=== PATIENT | male | born 1955 | race Caucasian/White ===

== ENCOUNTER 2020-05-23 05:45 | Day surgery (SDC) | payer BC ==
[2020-05-21 14:35] VITALS: BMI 29.8
[2020-05-23] MEDS ORDERED: Fentanyl 100 MCG/2 ML VIAL ONE ×2 (07:08→08:01)
[2020-05-23] MEDS ORDERED: Famotidine/PF 20 mg/2ml Vial ONE (07:08)
[2020-05-23] MEDS ORDERED: Midazolam HCl 2 mg/2 ml Vial ONE (07:08)
[2020-05-23] MEDS ORDERED: Fentanyl 100 MCG/2 ML VIAL IV PRN (08:05)
[2020-05-23] MEDS ORDERED: Promethazine HCl 25 MG/ML VIAL IM PRN (08:15)
[2020-05-23] MEDS ORDERED: Ropivacaine 0.2% 550 ML 550 ML NERVE BLCK SCH (08:15)
[2020-05-23] MEDS ORDERED: Zolpidem Tartrate 5 MG TAB PO PRN (08:15)
[2020-05-23] MEDS ORDERED: traMADol HCl 50 MG TAB PO PRN ×2 (08:15)
[2020-05-23] MEDS ORDERED: HYDROcodone/Acetaminophen 10/325 mg Tablet PO PRN ×2 (08:15)
[2020-05-23] MEDS ORDERED: Ondansetron PF 4 MG/2 ML Vial IVP PRN (08:15)
[2020-05-23] MEDS ORDERED: Bupivacaine 0.25% HCL 30 ML VIAL ONE (08:29)
[2020-05-23] MEDS ORDERED: EPINEPHrine 1 MG/ML AMP ONE (08:29)
[2020-05-23] MEDS ORDERED: Rocuronium Bromide 10 MG/ML (10ML VIAL) ONE (13:20)
[2020-05-23] MEDS ORDERED: PROPOFOL 200 MG/20 ML VIAL ONE (13:20)
[2020-05-23] MEDS ORDERED: Ondansetron PF 4 MG/2 ML Vial ONE (13:20)
[2020-05-23] MEDS ORDERED: Glycopyrrolate 0.2 MG/ML 5 ML SYRINGE ONE (13:20)
[2020-05-23] MEDS ORDERED: Ketorolac Tromethamine 30 MG/ML VIAL ONE (13:20)
[2020-05-23] MEDS ORDERED: Lidocaine 1% PF 5 ML VIAL ONE (13:20)
[2020-05-23] MEDS ORDERED: Dexamethasone 20 MG/5 ML VIAL ONE (13:20)
== END 2020-05-23 13:35 | disposition home or self-care (01) ==
LOC: SDC 05:45
PROVIDERS: ATTEND Orthopaedic Surgery
PROC: 0LQ24ZZ Repair Left Shoulder Tendon, Percutaneous Endoscopic Approach (ICD-10-PCS; principal; 2020-05-23)
PROC: 0LS40ZZ Reposition Left Upper Arm Tendon, Open Approach (ICD-10-PCS; principal; 2020-05-23)
PROC: 3E0T3BZ Introduction of Anesthetic Agent into Peripheral Nerves and Plexi, Percutaneous Approach (ICD-10-PCS; principal; 2020-05-23)
PROC: 0RNK4ZZ Release Left Shoulder Joint, Percutaneous Endoscopic Approach (ICD-10-PCS; principal; 2020-05-23)
DX: M75.102 Unspecified rotator cuff tear or rupture of left shoulder, not specified as traumatic (principal); M25.812 Other specified joint disorders, left shoulder; S46.212A Strain of muscle, fascia and tendon of other parts of biceps, left arm, initial encounter; G89.18 Other acute postprocedural pain; J30.2 Other seasonal allergic rhinitis; Z87.891 Personal history of nicotine dependence
CPT/HCPCS: A4306; C1713; J0171; J0690; J1100; J1885; J2250; J2405; J2704; J2795; J3010; S0020; S0028

== ENCOUNTER 2022-04-22 16:07 | Outpatient (CLI) | payer MEDICARE, OTHER ==
[2022-04-22 16:57] LABS: Bilirubin Neg (Negative); Blood, Urine Negative (Negative); Glucose, Urine (Dipstick) Normal (Negative); Ketone, Urine Negative (Negative); Leukocyte Negative (Negative); Nitrite Negative (Negative); Protein, Urine (Dipstick) Negative (Neg-Trace); Specific Gravity, Urine 1.005 (1.005-1.030); Urobilinogen Normal mg/dL (Less than 2); pH, Urine 6.5 (5.0-9.0)
[2022-04-22 17:02] LABS: Clarity Clear (Clear)
[2022-04-22 17:20] LABS: #Basophils 0.1 10x3/uL (0.0-0.2); #Eosinphils 0.1 10x3/uL (0.0-0.5); #Monocytes 0.5 10x3/uL (0.0-1.1); #Neutrophils 4.4 10x3/uL (1.5-8.4); %Basophils 0.7 % (0.0-2.0); %Lymphocytes 25.5 % (18.0-47.0); %Monocytes 7.6 % (0.0-10.0); %Neutrophils 63.8 % (40.0-75.0); Hemoglobin 14.2 g/dL (13.5-17.5); Mean Corpuscular Volume 93.9 fl (81.2-95.1); Mean Platelet Volume 9.9 fl (7.4-10.4); Platelet Count 278 10x3/uL (150-450); RBC Distribution Width 12.6 % (11.5-14.5); Red Blood Cell (RBC) Count 4.58 10x6/uL (4.32-5.72); White Blood Cell (WBC) Count 6.9 10x3/uL (3.5-10.5)
== END 2022-04-22 16:08 | disposition home or self-care (01) ==
LOC: LABBT 16:07
PROVIDERS: ATTEND Orthopaedic Surgery
DX: Z01.818 Encounter for other preprocedural examination (principal); M17.12 Unilateral primary osteoarthritis, left knee
CPT/HCPCS: 71046; 80048; 81003; 85025; 85610; 86850; 86900; 86901; 87081; 93005; 93010

== ENCOUNTER 2022-04-26 07:22 | Observation (INO) | payer MEDICARE ==
[2022-04-22 16:57] LABS: Bilirubin Neg (Negative); Blood, Urine Negative (Negative); Glucose, Urine (Dipstick) Normal (Negative); Ketone, Urine Negative (Negative); Leukocyte Negative (Negative); Nitrite Negative (Negative); Protein, Urine (Dipstick) Negative (Neg-Trace); Specific Gravity, Urine 1.005 (1.005-1.030); Urobilinogen Normal mg/dL (Less than 2); pH, Urine 6.5 (5.0-9.0)
[2022-04-22 17:02] LABS: Clarity Clear (Clear)
[2022-04-22 17:20] LABS: #Basophils 0.1 10x3/uL (0.0-0.2); #Eosinphils 0.1 10x3/uL (0.0-0.5); #Monocytes 0.5 10x3/uL (0.0-1.1); #Neutrophils 4.4 10x3/uL (1.5-8.4); %Basophils 0.7 % (0.0-2.0); %Lymphocytes 25.5 % (18.0-47.0); %Monocytes 7.6 % (0.0-10.0); %Neutrophils 63.8 % (40.0-75.0); Hemoglobin 14.2 g/dL (13.5-17.5); Mean Corpuscular Volume 93.9 fl (81.2-95.1); Mean Platelet Volume 9.9 fl (7.4-10.4); Platelet Count 278 10x3/uL (150-450); RBC Distribution Width 12.6 % (11.5-14.5); Red Blood Cell (RBC) Count 4.58 10x6/uL (4.32-5.72); White Blood Cell (WBC) Count 6.9 10x3/uL (3.5-10.5)
[2022-04-23 09:12] VITALS: BMI 29.8
[2022-04-26] MEDS ORDERED: Midazolam HCl 2 mg/2 ml Vial ONE (08:01)
[2022-04-26] MEDS ORDERED: Fentanyl 100 MCG/2 ML VIAL ONE (08:01)
[2022-04-26] MEDS ORDERED: Bupivacaine PF 0.5% 30 ML VIAL ONE (08:01)
[2022-04-26] MEDS ORDERED: Sodium Chloride 0.9% 100 ML ONE ×2 (08:16→09:47)
[2022-04-26] MEDS ORDERED: Tranexamic Acid 1,000 MG/10 ML VIAL ONE ×2 (08:16→12:16)
[2022-04-26] MEDS ORDERED: Vancomycin (BATCH) 1.5 GRAM/300 ML BAG ONE (08:16)
[2022-04-26 08:31] LABS: INR-International Normal Ratio 0.9; Prothrombin Time 12.9 sec (12.0-14.7)
[2022-04-26 08:38] LABS: Anion Gap 13 mmol/L (10-20); BUN (Urea Nitrogen) 16 mg/dL (8.4-25.7); Calc. Creatinine Clearance 140 mL/min (70-130); Calcium 9.1 mg/dL (7.8-10.44); Carbon Dioxide 21 mmol/L (23-31); Chloride 109 mmol/L (98-107); Estimated GFR 100; Glucose 89 mg/dL (80-115); Potassium 4.8 mmol/L (3.5-5.1); Sodium 138 mmol/L (136-145)
[2022-04-26] MEDS ORDERED: Bupivacaine HCl 0.5%/Epinephrine 1:200,000/PF 30 ml Vial ONE (08:40)
[2022-04-26 08:45] LABS: SARS-CoV-2 NAA Rapid Test Not Detected (NotDetected)
[2022-04-26] MEDS ORDERED: Fentanyl 100 MCG/2 ML VIAL IV PRN (08:51)
[2022-04-26] MEDS ORDERED: Zolpidem Tartrate 5 MG TAB PO PRN ×2 (09:00→10:02)
[2022-04-26] MEDS ORDERED: Promethazine HCl 25 MG/ML VIAL IM PRN ×3 (09:00→11:58)
[2022-04-26] MEDS ORDERED: traMADol HCl 50 MG TAB PO PRN (09:00)
[2022-04-26] MEDS ORDERED: Ropivacaine 0.2% 550 ML 550 ML NERVE BLCK SCH ×2 (09:00→09:15)
[2022-04-26] MEDS ORDERED: Ondansetron PF 4 MG/2 ML Vial IVP PRN ×2 (09:00→10:02)
[2022-04-26] MEDS ORDERED: HYDROcodone/Acetaminophen 10/325 mg Tablet PO PRN ×2 (09:00)
[2022-04-26] MEDS ORDERED: fentaNYL PF 100 MCG/2 ML SYRINGE ONE (09:42)
[2022-04-26] MEDS ORDERED: Bupivacaine 0.25% HCL 30 ML VIAL ONE (09:47)
[2022-04-26] MEDS ORDERED: CEFAZOLIN 2 GM VIAL ONE (09:47)
[2022-04-26] MEDS ORDERED: Dexamethasone 20 MG/5 ML VIAL ONE (09:56)
[2022-04-26] MEDS ORDERED: Ketorolac Tromethamine 30 MG/ML VIAL ONE (09:56)
[2022-04-26] MEDS ORDERED: PROPOFOL 200 MG/20 ML VIAL ONE (09:56)
[2022-04-26] MEDS ORDERED: Lidocaine 1% PF 5 ML VIAL ONE (09:56)
[2022-04-26] MEDS ORDERED: Ondansetron PF 4 MG/2 ML Vial ONE (09:56)
[2022-04-26] MEDS ORDERED: diphenhydrAMINE 25 MG CAP PO PRN (10:02)
[2022-04-26] MEDS ORDERED: Acetaminophen 325 MG TAB PO PRN (10:02)
[2022-04-26] MEDS ORDERED: Tranexamic Acid 1,000 MG in Sodium Chloride 0.9% 100 ML IVPB SCH (10:15)
[2022-04-26] MEDS ORDERED: Ondansetron HCl/PF 4 MG/2 ML Vial IVP PRN (11:58)
[2022-04-26] MEDS: Ketorolac Tromethamine 30 MG/ML VIAL IVP SCH ×2 (13:52→22:23)
[2022-04-26] MEDS: Sodium Chloride 0.9% 1,000 ML IV SCH ×2 (13:52→20:51)
[2022-04-26] MEDS: CEFAZOLIN 2 GM in Sodium Chloride 0.9% 100 ML IVPB SCH (17:49)
[2022-04-26] MEDS ORDERED: Vancomycin 1.5 GRAM/300 ML BAG 1.5 GM in Premix Bag 1 BAG IVPB SCH (20:00)
[2022-04-26] MEDS: Ferrous Gluconate 324 MG TAB PO SCH (20:43)
[2022-04-26] MEDS: Aspirin 81 mg Enteric Coated Tablet PO SCH (20:43)
[2022-04-26] MEDS: Senokot S 8.6-50 MG TAB PO SCH (20:44)
[2022-04-26] MEDS: traMADol HCl 50 MG TAB PO PRN (20:44)
[2022-04-27] MEDS: CEFAZOLIN 2 GM in Sodium Chloride 0.9% 100 ML IVPB SCH (01:53)
[2022-04-27] MEDS: Ketorolac Tromethamine 30 MG/ML VIAL IVP SCH ×2 (05:08→13:31)
[2022-04-27] MEDS: traMADol HCl 50 MG TAB PO PRN ×2 (05:08→11:21)
[2022-04-27] MEDS: Sodium Chloride 0.9% 1,000 ML IV SCH (05:53)
[2022-04-27 06:06] LABS: Hemoglobin 11.8 g/dL (14.0-18.0); Mean Corpuscular Hemoglobin 31.4 pg (27.0-31.0); Mean Corpuscular Volume 98.3 fl (78.0-98.0); Mean Platelet Volume 7.8 fL (7.4-10.4); Platelet Count 201 10x3/uL (130-400); RBC Distribution Width 11.8 % (11.5-14.5); Red Blood Cell (RBC) Count 3.75 mill/uL (4.70-6.10); White Blood Cell (WBC) Count 10.9 10x3/uL (4.8-10.8)
[2022-04-27] MEDS: Ferrous Gluconate 324 MG TAB PO SCH (08:32)
[2022-04-27] MEDS: Senokot S 8.6-50 MG TAB PO SCH (08:32)
[2022-04-27] MEDS: Aspirin 81 mg Enteric Coated Tablet PO SCH (08:32)
[2022-04-27] MEDS ORDERED: Metamucil PACK PO SCH (09:00)
[2022-04-27] MEDS ORDERED: Multivitamin W/ Minerals 1 TAB PO SCH (09:00)
[2022-04-27 12:05] VITALS: BP 146/80; TEMP 98.1
== END 2022-04-27 14:30 | disposition home health service (06) ==
LOC: SDC 07:22 → SJJU 12:56
PROVIDERS: ADMIT Orthopaedic Surgery; ATTEND Orthopaedic Surgery
PROC: 0SRD0J9 Replacement of Left Knee Joint with Synthetic Substitute, Cemented, Open Approach (ICD-10-PCS; principal; 2022-04-26)
DX: M17.0 Bilateral primary osteoarthritis of knee (principal); Z87.891 Personal history of nicotine dependence; Z79.899 Other long term (current) drug therapy; Z20.822 Contact with and (suspected) exposure to COVID-19
CPT/HCPCS: 20985; 27447; 80048; 81003; 85025; 85027; 85610; 86850; 86900; 86901; 96365; 96366; 96367; 96375; 96376 ×2; 97110 ×2; 97116 ×2; 97530; A4306; C1713; C1776; G0378 ×2; J3370; U0002; 36415; J1100; J1885; J2250; J2405; J2704; J2795; J3010; J3490; J7050; S0020

== ENCOUNTER 2024-12-14 09:30 | Day surgery (SDC) | payer MEDICARE, OTHER ==
[2024-12-13 14:15] VITALS: BMI 29.8
[2024-12-14] MEDS ORDERED: Lidocaine 1% PF 5 ML VIAL ONE (10:02)
[2024-12-14] MEDS ORDERED: PROPOFOL 20 ML ONE (10:02)
[2024-12-14] MEDS ORDERED: Ondansetron PF 4 MG/2 ML Vial ONE (10:02)
[2024-12-14 10:22] LABS: #Basophils 0.04 10x3/uL (0.0-0.2); #Eosinophils 0.18 10x3/uL (0.0-0.7); #Monocytes 0.41 10x3/uL (0.11-0.59); #Neutrophils 3.95 10x3/uL (1.40-6.50); %Basophils 0.6 % (0.0-1.0); %Eosinophils 2.9 % (0.0-10.0); %Lymphocytes 26.0 % (21.0-51.0); %Monocytes 6.6 % (0.0-10.0); %Neutrophils 63.6 % (42.0-75.0); Hematocrit 42.7 % (42.0-52.0); Hemoglobin 13.6 g/dL (14.0-18.0); Mean Corpuscular Hemoglobin 30.6 pg (27.0-31.0); Mean Corpuscular Volume 96.2 fL (78.0-98.0); Platelet Count 232 10x3/uL (130-400); Red Blood Cell (RBC) Count 4.44 mill/uL (4.70-6.10); White Blood Cell (WBC) Count 6.22 10x3/uL (4.8-10.8)
[2024-12-14] MEDS ORDERED: CEFAZOLIN 2 GM VIAL ONE (10:22)
[2024-12-14] MEDS ORDERED: Lidocaine 1% (PF) 30 ML VIAL ONE (10:26)
[2024-12-14] MEDS ORDERED: fentaNYL PF 100 MCG/2 ML SYRINGE ONE ×2 (10:51→13:19)
[2024-12-14 11:04] LABS: Anion Gap 12 mmol/L (10-20); BUN (Urea Nitrogen) 18 mg/dL (8.4-25.7); Calc. Creatinine Clearance 125 mL/min (70-130); Calcium 9.2 mg/dL (7.8-10.44); Carbon Dioxide 25 mmol/L (23-31); Chloride 108 mmol/L (98-107); Glucose 91 mg/dL (80-115); Potassium 4.0 mmol/L (3.5-5.1); Sodium 141 mmol/L (136-145)
[2024-12-14] MEDS ORDERED: HYDROcodone/Acetaminophen 5/325 mg Tablet ONE (14:22)
== END 2024-12-14 14:52 | disposition home or self-care (01) ==
LOC: SDC 09:30
PROVIDERS: ATTEND Orthopaedic Surgery
PROC: 01N50ZZ Release Median Nerve, Open Approach (ICD-10-PCS; principal; 2024-12-14)
PROC: 01N40ZZ Release Ulnar Nerve, Open Approach (ICD-10-PCS; 2024-12-14)
DX: G56.02 Carpal tunnel syndrome, left upper limb (principal); G56.22 Lesion of ulnar nerve, left upper limb; D17.22 Benign lipomatous neoplasm of skin and subcutaneous tissue of left arm; Z87.891 Personal history of nicotine dependence
CPT/HCPCS: 24075; 64718; 64721; 80048; 85025; A6223; J2405; J2704; 88304; J0169

== ENCOUNTER 2025-04-08 08:31 | Outpatient (CLI) | payer MEDICARE, OTHER ==
[2025-04-08 09:55] LABS: #Basophils 0.04 10x3/uL (0.0-0.2); #Eosinophils 0.10 10x3/uL (0.0-0.7); #Monocytes 0.44 10x3/uL (0.11-0.59); #Neutrophils 4.25 10x3/uL (1.40-6.50); %Basophils 0.6 % (0.0-1.0); %Eosinophils 1.6 % (0.0-10.0); %Lymphocytes 23.6 % (21.0-51.0); %Monocytes 6.9 % (0.0-10.0); %Neutrophils 67.0 % (42.0-75.0); Hematocrit 43.6 % (42.0-52.0); Hemoglobin 14.2 g/dL (14.0-18.0); Mean Corpuscular Hemoglobin 30.3 pg (27.0-31.0); Mean Corpuscular Volume 93.2 fL (78.0-98.0); Platelet Count 231 10x3/uL (130-400); Red Blood Cell (RBC) Count 4.68 mill/uL (4.70-6.10); White Blood Cell (WBC) Count 6.35 10x3/uL (4.8-10.8)
[2025-04-08 10:03] LABS: Glucose, Urine (Dipstick) Negative (Negative); Leukocyte Negative (Negative); Protein, Urine (Dipstick) Negative (Neg-Trace); Specific Gravity, Urine 1.010 (1.005-1.030)
[2025-04-08 10:09] LABS: INR-International Normal Ratio 1.1; Prothrombin Time 14.1 sec (12.0-14.7)
[2025-04-08 10:32] LABS: Anion Gap 9 mmol/L (10-20); BUN (Urea Nitrogen) 14 mg/dL (8.4-25.7); Calc. Creatinine Clearance 0 mL/min (70-130); Calcium 9.4 mg/dL (7.8-10.44); Carbon Dioxide 26 mmol/L (23-31); Chloride 109 mmol/L (98-107); Glucose 80 mg/dL (80-115); Potassium 4.3 mmol/L (3.5-5.1); Sodium 140 mmol/L (136-145)
[2025-04-08 10:47] LABS: RBC/HPF None Seen HPF (0-3); WBC/HPF None Seen HPF (0-3)
== END 2025-04-08 08:32 | disposition home or self-care (01) ==
LOC: LABBT 08:31
PROVIDERS: ATTEND Orthopaedic Surgery
DX: Z01.818 Encounter for other preprocedural examination (principal); M17.11 Unilateral primary osteoarthritis, right knee
CPT/HCPCS: 71046; 80048; 81001; 85025; 85610; 87081; 93005; 93010